=== PATIENT | female | born 1975 | race Caucasian/White ===

== ENCOUNTER 2022-05-27 20:59 | Emergency (ER) | payer OTHER ==
[~2022-05-27] VITALS: Ht 160 cm; Wt 77.1 kg
[2022-05-27] MEDS ORDERED: ONDANSETRON HCL INJ 2MG/ML 2ML 2 MG/ML VIAL IV STA (21:07)
[2022-05-27] MEDS ORDERED: FENTANYL CITRATE/PF 100MCG/2 ML INJ IV ONE ×2 (21:15→23:15)
[2022-05-27] MEDS ORDERED: FENTANYL CITRATE/PF 100MCG/2 ML INJ ONE (21:17)
[2022-05-27] MEDS ORDERED: ONDANSETRON HCL INJ 2MG/ML 2ML 2 MG/ML VIAL ONE (21:17)
[2022-05-27] MEDS ORDERED: SODIUM CHLORIDE 0.9% 1000ML 1,000 ML ONE (21:17)
[2022-05-27 21:28] LABS: BASOPHILS # (AUTO) 0.1 (0.0-0.1); BASOPHILS % 1.1 % (0.0-1.0); EOSINOPHILS # (AUTO) 0.4 (0.0-0.4); EOSINOPHILS % 4.1 % (0.0-6.0); HEMATOCRIT 38.9 % (34.2-44.1); HEMOGLOBIN 12.8 g/dL (12.0-16.0); LYMPHOCYTES # (AUTO) 4.1 (1.0-3.2); LYMPHOCYTES % 46.6 % (18.0-39.1); MEAN CORPUSCULAR HEMOGLOBIN 28.4 pg (28-32); MEAN CORPUSCULAR HGB CONC 32.9 g/dL (31-35); MEAN CORPUSCULAR VOLUME 86.4 fL (81-99); MONOCYTES # (AUTO) 0.7 (0.2-0.8); MONOCYTES % 7.4 % (4.4-11.3); NEUTROPHILS # (AUTO) 3.6 (2.1-6.9); NEUTROPHILS % 40.5 % (38.7-80.0); PLATELET COUNT 312 x10e3/uL (140-360); RED CELL DISTRIBUTION WIDTH 11.6 % (11.7-14.4)
[2022-05-27 21:47] LABS: ALANINE AMINOTRANSFERASE 22 IU/L (0-55); ALBUMIN 3.9 g/dL (3.5-5.0); ALBUMIN/GLOBULIN RATIO 1.3 (0.8-2.0); ALKALINE PHOSPHATASE 61 IU/L (40-150); ANION GAP 15.5 mmol/L (8-16); BLOOD UREA NITROGEN 7 mg/dL (7-26); BUN/CREATININE RATIO 8 (6-25); CALCIUM 8.4 mg/dL (8.4-10.2); CARBON DIOXIDE 21 mmol/L (22-29); CHLORIDE 106 mmol/L (98-107); CREATINE KINASE 223 IU/L (29-168); CREATININE, SERUM 0.85 mg/dL (0.57-1.11); GLUCOSE 116 mg/dL (74-118); POTASSIUM 3.5 mmol/L (3.5-5.1); SODIUM 139 mmol/L (136-145)
[2022-05-27 22:12] LABS: LIPASE 31 U/L (8-78)
[2022-05-27] MEDS ORDERED: Morphine 4mg INJECTION 4 MG/ML INJ IV ONE (22:15)
[2022-05-27] MEDS ORDERED: DIPHENHYDRAMINE HCL INJ 50 MG/ML VIAL IV ONE ×2 (22:15)
[2022-05-27] MEDS ORDERED: IOPAMIDOL 370 MG/ML 100 ML INFUS..BTL INJ ONE (22:21)
[2022-05-28 05:02] VITALS: BP 134/79
== END 2022-05-28 01:00 | disposition home or self-care (01) ==
LOC: ER 21:06
DX: R10.13 Epigastric pain (principal); R11.10 Vomiting, unspecified; I10 Essential (primary) hypertension; R94.31 Abnormal electrocardiogram [ECG] [EKG]; Z20.822 Contact with and (suspected) exposure to COVID-19; F17.210 Nicotine dependence, cigarettes, uncomplicated
CPT/HCPCS: 36415; 74177; 80053; 82550; 82553; 83690; 84484; 84702; 85025; 93005; 99284; J1200; J2270; J2405; J3010 ×2; J7030; Q9967; U0002

== ENCOUNTER 2022-09-26 10:23 | Emergency (ER) | payer OTHER ==
[~2022-09-26] VITALS: Ht 160 cm; Wt 74.8 kg
[2022-09-26] MEDS ORDERED: SODIUM CHLORIDE 0.9% 1000ML 1,000 ML IV STA (11:27)
[2022-09-26] MEDS ORDERED: LORAZEPAM INJ 2 MG/ML VIAL IV NR (11:30)
[2022-09-26 11:33] LABS: BASOPHILS % 0.3 % (0.0-1.0); EOSINOPHILS # (AUTO) 0.1 (0.0-0.4); EOSINOPHILS % 0.9 % (0.0-6.0); HEMATOCRIT 42.8 % (34.2-44.1); HEMOGLOBIN 13.3 g/dL (12.0-16.0); LYMPHOCYTES # (AUTO) 4.4 (1.0-3.2); LYMPHOCYTES % 48.5 % (18.0-39.1); MEAN CORPUSCULAR HEMOGLOBIN 27.5 pg (28-32); MEAN CORPUSCULAR HGB CONC 31.1 g/dL (31-35); MEAN CORPUSCULAR VOLUME 88.4 fL (81-99); MONOCYTES # (AUTO) 0.7 (0.2-0.8); MONOCYTES % 7.7 % (4.4-11.3); NEUTROPHILS # (AUTO) 3.8 (2.1-6.9); NEUTROPHILS % 42.2 % (38.7-80.0); PLATELET COUNT 356 x10e3/uL (140-360); RED BLOOD COUNT 4.84 x10e6/uL (3.6-5.1); RED CELL DISTRIBUTION WIDTH 11.6 % (11.7-14.4)
[2022-09-26 11:47] LABS: ALBUMIN 4.2 g/dL (3.5-5.0); ALBUMIN/GLOBULIN RATIO 1.1 (0.8-2.0); ANION GAP 15.1 mmol/L (8-16); CREATININE, SERUM 0.96 mg/dL (0.57-1.11); POTASSIUM 3.1 mmol/L (3.5-5.1)
[2022-09-26] MEDS ORDERED: POTASSIUM CHLORIDE 20 MEQ TAB CR PO NR (13:15)
[2022-09-26 13:38] VITALS: BP 134/77
== END 2022-09-26 13:40 | disposition home or self-care (01) ==
LOC: ER 10:26
DX: R50.9 Fever, unspecified (principal); G25.9 Extrapyramidal and movement disorder, unspecified; I10 Essential (primary) hypertension; F32.A Depression, unspecified
CPT/HCPCS: 36415; 80053; 85025; 99283; J2060; J7030

== ENCOUNTER 2022-10-20 10:30 | Emergency (ER) | payer OTHER ==
[~2022-10-20] VITALS: Ht 160 cm; Wt 74.8 kg
[2022-10-20] MEDS ORDERED: DIPHENHYDRAMINE HCL INJ 50 MG/ML VIAL IV STA (10:43)
[2022-10-20 11:09] LABS: BASOPHILS # (AUTO) 0.1 (0.0-0.1); BASOPHILS % 0.6 % (0.0-1.0); EOSINOPHILS # (AUTO) 0.3 (0.0-0.4); EOSINOPHILS % 2.5 % (0.0-6.0); HEMATOCRIT 41.4 % (34.2-44.1); MEAN CORPUSCULAR HEMOGLOBIN 27.3 pg (28-32); MEAN CORPUSCULAR HGB CONC 31.4 g/dL (31-35); MEAN CORPUSCULAR VOLUME 86.8 fL (81-99); MONOCYTES # (AUTO) 0.9 (0.2-0.8); MONOCYTES % 7.9 % (4.4-11.3); NEUTROPHILS # (AUTO) 7.5 (2.1-6.9); NEUTROPHILS % 63.5 % (38.7-80.0); PLATELET COUNT 424 x10e3/uL (140-360); RED BLOOD COUNT 4.77 x10e6/uL (3.6-5.1); RED CELL DISTRIBUTION WIDTH 11.9 % (11.7-14.4)
[2022-10-20] MEDS ORDERED: LORAZEPAM INJ 2 MG/ML VIAL IV ONE ×2 (11:30→13:00)
[2022-10-20 12:03] LABS: ALBUMIN 4.1 g/dL (3.5-5.0); ALBUMIN/GLOBULIN RATIO 1.2 (0.8-2.0); ANION GAP 18.3 mmol/L (8-16); CALCIUM 8.7 mg/dL (8.4-10.2); CREATININE, SERUM 0.79 mg/dL (0.57-1.11); POTASSIUM 3.3 mmol/L (3.5-5.1)
== END 2022-10-20 13:21 | disposition home or self-care (01) ==
LOC: ER 10:39
DX: R06.00 Dyspnea, unspecified (principal); G25.5 Other chorea; I10 Essential (primary) hypertension; F32.A Depression, unspecified; Z88.1 Allergy status to other antibiotic agents
CPT/HCPCS: 36415; 71045; 80053; 83880; 84484; 85025; 93005; 99283; J1200; J2060